=== PATIENT | male | born 1950 | race Caucasian/White ===

== ENCOUNTER 2023-07-12 10:05 | Outpatient (CLI) | payer OTHER | END 2023-07-12 10:27 | disposition home or self-care (01) | LOC: SONOGRAMA 10:05 | PROVIDERS: ATTEND Family Medicine | DX: M25.512 Pain in left shoulder (principal) ==

== ENCOUNTER 2023-07-22 10:37 | Outpatient (CLI) | payer OTHER | END 2023-07-22 10:48 | disposition home or self-care (01) | LOC: MRI 10:37 | PROVIDERS: ATTEND Orthopaedic Surgery Sports Medicine | DX: M75.122 Complete rotator cuff tear or rupture of left shoulder, not specified as traumatic (principal) | CPT/HCPCS: 73218 ==